=== PATIENT | female | born 1970 | race Caucasian/White ===

== ENCOUNTER → 2016-08-25 | Outpatient (CLI) | payer BC | END | disposition home or self-care (01) | LOC: MMGSC 14:50 | PROVIDERS: ATTEND Family Medicine | DX: R35.8 Other polyuria (principal) | CPT/HCPCS: 87086 ==

== ENCOUNTER → 2016-09-01 | Outpatient (CLI) | payer BC | END | disposition home or self-care (01) | LOC: MMGSC 12:04 | PROVIDERS: ATTEND Family Medicine | DX: N76.0 Acute vaginitis (principal) | CPT/HCPCS: 87070; 87205; 87491; 87591 ==

== ENCOUNTER → 2017-03-22 | Outpatient (CLI) | payer BC ==
[2017-03-22 18:46] LABS: Basophils # (A) 0.1 k/uL (0-0.2); Basophils % (A) 1 %; CHCM 34.6; Eosinophils # (A) 0.2 k/uL (0-0.7); Eosinophils % (A) 2 %; HDW 2.51; HGB 14.3 gm/dL (11.4-16.0); Luc # (Auto) 0.17; Luc % (Auto) 3; Lymphocytes # (A) 2.7 k/uL (1.0-4.8); Lymphocytes % (A) 40 %; MCH 31.6 pg (25.0-35.0); MCHC 34.1 g/dL (31.0-37.0); MCV 92.8 fL (80.0-100.0); Mean Platelet Volume 8.2; Monocytes # (A) 0.4 k/uL (0-1.0); Monocytes % (A) 6 %; Neutrophils # (A) 3.3 k/uL (1.3-7.7); Neutrophils % (A) 49 %; RBC 4.52 m/uL (3.80-5.40); RDW 13.7 % (11.5-15.5); WBC 6.7 k/uL (3.8-10.6); WBC (Perox) 6.26
[2017-03-22 18:55] LABS: ALT 28 U/L (9-52); AST 21 U/L (14-36); Alkaline Phosphatase 48 U/L (38-126); Anion Gap 13 mmol/L; Blood Urea Nitrogen 13 mg/dL (7-17); Calcium 8.9 mg/dL (8.4-10.2); Carbon Dioxide 22 mmol/L (22-30); Chloride 107 mmol/L (98-107); Cholesterol 257 mg/dL (<200); Glucose 90 mg/dL (74-99); HDL Cholesterol 51 mg/dL (40-60); Non-African American GFR(MDRD) 60 (>60 ml/min/1.73 sqM); Potassium 4.2 mmol/L (3.5-5.1); Sodium 142 mmol/L (137-145); Total Bilirubin 1.2 mg/dL (0.2-1.3); Total Protein 7.4 g/dL (6.3-8.2); Triglycerides 193 mg/dL (<150)
== END | disposition home or self-care (01) ==
LOC: MMGSC 09:16
PROVIDERS: ATTEND Family Medicine
DX: Z00.00 Encounter for general adult medical examination without abnormal findings (principal)
CPT/HCPCS: 36415; 80053; 80061; 84439; 84443; 85025

== ENCOUNTER → 2017-04-29 | Outpatient (CLI) | payer BC | LOC: MMGSC 15:31 | PROVIDERS: ATTEND Family Medicine | DX: R35.0 Frequency of micturition (principal) | CPT/HCPCS: 87086 ==

== ENCOUNTER → 2017-08-29 | Outpatient (CLI) | payer BC ==
--- NOTE | 2017-08-31 07:13 | MM ---
Reason for exam: screening (asymptomatic). Last mammogram was performed 1 year and 2 months ago. History: Patient had first child at age 34. Taking hormonal contraceptives for 20 years beginning at age 21. Physical Findings: A clinical breast exam by your physician is recommended on an annual basis and results should be correlated with mammographic findings. MG Screening Mammo w CAD Bilateral CC and MLO view(s) were taken. Prior study comparison: June 28, 2016, bilateral MG screening mammo w CAD. July 16, 2014, bilateral MG screening mammo w CAD. The breast tissue is almost entirely fat. No significant changes when compared with prior studies. ASSESSMENT: Negative, BI-RAD 1 RECOMMENDATION: Routine screening mammogram of both breasts in 1 year.
== END | disposition home or self-care (01) ==
LOC: RADMAMWWP 13:12
PROVIDERS: ATTEND Obstetrics & Gynecology
DX: Z12.31 Encounter for screening mammogram for malignant neoplasm of breast (principal)
CPT/HCPCS: 77067

== ENCOUNTER → 2017-09-22 | Outpatient (CLI) | payer BC ==
--- NOTE | 2017-09-22 13:09 | US ---
EXAMINATION TYPE: US extremity nonvasculr ltd LT DATE OF EXAM: 09/22/2017 COMPARISON: NONE CLINICAL HISTORY: Left Knee pain M25.562, R22.42 Swelling L leg. 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 IMPRESSION: Elongated complex fluid collection extending from the popliteal fossa most commonly rela ting to the Pace's cyst/popliteal fossa cyst. Alternative consideration is for hematoma from prior t rauma, which is considered less likely.
== END | disposition home or self-care (01) ==
LOC: RADUSWWP 12:19
PROVIDERS: ATTEND Family Medicine
DX: M25.562 Pain in left knee (principal); R22.42 Localized swelling, mass and lump, left lower limb

== ENCOUNTER → 2018-08-18 | Outpatient (CLI) | payer BC ==
[2018-08-18 12:47] LABS: Basophils # (A) 0.1 k/uL (0-0.2); Basophils % (A) 1 %; Eosinophils # (A) 0.2 k/uL (0-0.7); Eosinophils % (A) 2 %; HCT 39.3 % (34.0-46.0); HGB 13.6 gm/dL (11.4-16.0); Lymphocytes # (A) 2.3 k/uL (1.0-4.8); Lymphocytes % (A) 23 %; MCH 31.6 pg (25.0-35.0); MCHC 34.6 g/dL (31.0-37.0); MCV 91.5 fL (80.0-100.0); Mean Platelet Volume 7.1; Monocytes # (A) 0.5 k/uL (0-1.0); Monocytes % (A) 5 %; Neutrophils # (A) 6.9 k/uL (1.3-7.7); Neutrophils % (A) 68 %; Platelet Count 269 k/uL (150-450); RBC 4.29 m/uL (3.80-5.40); RDW 13.1 % (11.5-15.5); WBC 10.1 k/uL (3.8-10.6)
== END | disposition home or self-care (01) ==
LOC: LABPAT 11:50
PROVIDERS: ATTEND Obstetrics & Gynecology
DX: Z01.818 Encounter for other preprocedural examination (principal); Z01.812 Encounter for preprocedural laboratory examination; I10 Essential (primary) hypertension; R87.612 Low grade squamous intraepithelial lesion on cytologic smear of cervix (LGSIL)
CPT/HCPCS: 36415; 85025; 93005

== ENCOUNTER 2018-09-05 06:17 | Day surgery (SDC) | payer BC ==
[2018-09-01 14:57] VITALS: BMI 38.6
--- NOTE | 2018-09-04 13:38 | HP ---
HISTORY AND PHYSICAL H and P for surgery tomorrow, September 05. This is a 48-year-old white female who presents for cold knife conization of the cervix for a history of positive high-risk HPV on Pap smear, colposcopy showing low-grade squamous intraepithelial lesion, cannot rule out high-grade changes on an ECC. I discussed with her the difficulty in thoroughly analyzing this aspect of the cervix secondary to its cryptic nature. After thorough discussion, and because she is done with childbearing, we have elected to proceed with cold knife conization of the cervix. She is using oral contraception for control. She has no other complaints or problems. REVIEW OF SYSTEMS: Otherwise negative. She has had abnormal Pap smears in the past, dating back to 1995. PAST MEDICAL HISTORY: Significant for endometriosis, hypercholesterolemia, psoriasis, positive high-risk HPV Digene, and history of chlamydia. PAST SURGICAL HISTORY: section 2004, colposcopies and colposcopically directed biopsies in the past. Diagnostic laparoscopy 2003, voluntary terminations of in the . CURRENT MEDICATIONS: 1. A 20 mcg control pill daily. 2. Celexa daily. 3. Clobetasol topical ointment twice daily p.r.n. 4. Dyazide 37.5/25 mg capsule daily. 5. Flonase as needed. 6. Lipitor daily. 7. Vitamin D daily. ALLERGIES: Allergies include PENICILLIN to which reports a rash. FAMILY HISTORY: Significant for hypertension, psoriasis, and thyroid disease. OBSTETRIC HISTORY: Significant for section 2004, 3 spontaneous miscarriages and 1 termination of . SOCIAL HISTORY: Patient is a former smoker, quit in the . Social alcohol. She is . She works locally. PHYSICAL EXAMINATION: On exam, the patient is 228 pounds, 5 foot 3-1/2 inches, BMI 40, blood pressure 120/80. HEENT exam reveals good dentition, no thyromegaly. Chest is clear to auscultation in all mejias anteriorly and posteriorly. Abdomen is soft and moderately obese. No organosplenomegaly. No tenderness. Active bowel sounds. Breasts are bilaterally symmetric to inspection with no skin dimpling, nipple discharge, or axillary adenopathy. The extremities reveal good range of motion, no edema, good peripheral pulses. The cervix is nulliparous in appearance. Uterus is small, anteverted, anteflexed. Adnexa are negative bilaterally. IMPRESSION: Positive endocervical curettage, cannot rule out high-grade lesion. Patient is electing cold knife conization of the cervix. PLAN: We have discussed options and I believe this is the safest option for the patient given her scenario. We have reviewed the risks of bleeding, infection, perforation or damage to bowel, bladder, ureters, or indeed any pelvic organs. A second opinion has been offered and declined. The patient is no longer interested in childbearing, but understands that a conization could increase her risk for labor and delivery. All questions answered. MMODL / IJN: [id number] /
[~2018-09-05 06:17] MED LIST: DEXAMETHASONE SOD PHOSPHATE 10 MG/ML 1 ML VIAL IV ONE; HYDROmorphone 0.5 MG/0.5 ML SYRINGE IVP PRN; LIDOCAINE 1% 20 ML VIAL (10MG/ML) FOR IV START INTRADERMA PRN; MIDAZOLAM (PF) 2 MG/2 ML VIAL IV PRN; ONDANSETRON 4 MG/2 ML VIAL IVP ONE; SCOPOLAMINE 1.5MG/72HR PATCH TRANSDERM ONE; ceFAZolin IN SWFI 2 GM/20 ML SYRINGE IVP ONE
[2018-09-05] MEDS: LACTATED RINGERS 1,000 ML IV SCH ×2 (07:07→07:24)
[2018-09-05] MEDS ORDERED: fentaNYL (PF) 50 MCG/ML 2 ML AMP ONE (07:26)
[2018-09-05] MEDS ORDERED: LIDOCAINE 1% INJ 10MG/ML (20 ML MDV) ONE (07:26)
[2018-09-05] MEDS ORDERED: PROPOFOL 10 MG/ML 20 ML VIAL IV ONE (07:26)
[2018-09-05] MEDS ORDERED: SUCCINYLCHOLINE CHLORIDE 100 MG/5 ML SYR IV ONE (07:26)
[2018-09-05] MEDS ORDERED: MIDAZOLAM 2 MG/2 ML VIAL ONE (07:26)
[2018-09-05] MEDS ORDERED: KETOROLAC 30 MG/ML 1 ML VIAL ONE (07:26)
[2018-09-05] MEDS ORDERED: VASOPRESSIN 20 UNIT/ML 1 ML VIAL SQ ONE (07:44)
[2018-09-05] MEDS ORDERED: FERRIC SUBSULFATE (MONSELS) JAR TOPICAL ONE (07:50)
--- NOTE | 2018-09-05 07:55 | P.OP ---
Date of Procedure: 09/05/18 Preoperative Diagnosis: Persistently Abnormal Pap smear, positive endocervical curettings. Postoperative Diagnosis: Same Procedure(s) Performed: Cold knife conization, endocervical curettage Anesthesia: ROSEMARY Surgeon: Dafne Arenas Financial Adviser #1: Stated None Estimated Blood Loss (ml): 5 IV fluids (ml): 700 Urine output (ml): 5 Pathology: other (Conization specimen tagged at 12:00, endocervical curettings) Condition: stable Disposition: PACU Operative Findings: Essentially negative cervix to visual examination. Description of Procedure: Patient is brought to the operating suite where a general anesthetic is administered without difficulty. She's placed in the dorsal lithotomy position. Antibiotics are not deemed necessary. Urine hCG is negative. Appropriate timeout is performed to assure proper patient and procedural identification. The cervix, vagina, perineal bodies are all prepped and draped in usual sterile fashion. Weighted speculum was placed into the vagina. Bladder is drained for 5 mL of clear yellow urine. Stay sutures of 0 Vicryl are placed for hemostatic purposes, on the patient's left from 2:00 to 4:00, held laterally. On the patient's right from 8:00 to 10:00, tied and held laterally. The cervix is then injected with dilute Pitressin solution again to aid in hemostasis. A sharp knife was used at 12:00 and the specimen is removed. It is sutured tagged at 12:00. A vigorous endocervical curettage was then performed and sent to pathology under separate cover. Hemostasis is excellent. The base of the cervical stump is then cauterized with electrocautery. Monsel solution is placed. Stay sutures are removed. All sponge needle and enhancement counts are correct at the end of the procedure. Patient is brought back to recovery room in very good condition with stable vital signs including blood pressure 109/75, pulse 71, 95% O2 saturation. Toradol is given prior to leaving the operative suite. Patient will follow-up with me in the office in 2 weeks.
[2018-09-05 08:12] VITALS: TEMP 98.2
[2018-09-05 08:21] VITALS: RESP 16
[2018-09-05] MEDS ORDERED: LACTATED RINGERS 1,000 ML IV ONE (09:11)
[2018-09-05 09:56] VITALS: BP 117/78; PULSE 86
== END 2018-09-05 10:54 | disposition home or self-care (01) ==
LOC: OR 06:17
PROVIDERS: ATTEND Obstetrics & Gynecology
DX: N87.1 Moderate cervical dysplasia (principal); N80.9 Endometriosis, unspecified; I10 Essential (primary) hypertension; E78.00 Pure hypercholesterolemia, unspecified; E78.5 Hyperlipidemia, unspecified; E66.9 Obesity, unspecified; F41.9 Anxiety disorder, unspecified; F43.29 Adjustment disorder with other symptoms; L40.9 Psoriasis, unspecified; Z79.3 Long term (current) use of hormonal contraceptives; Z79.899 Other long term (current) drug therapy; Z88.0 Allergy status to penicillin; Z87.891 Personal history of nicotine dependence; Z68.41 Body mass index [BMI] 40.0-44.9, adult
CPT/HCPCS: 57520; 81025; 88305; 88307; J2250; J1100; J2405; J2001; J3010; J1885; J0330; J2704

== ENCOUNTER → 2018-11-03 | Outpatient (CLI) | payer BC ==
--- NOTE | 2018-11-07 09:03 | MM ---
Reason for exam: screening (asymptomatic). Last mammogram was performed 1 year and 2 months ago. History: Patient had first child at age 34. Taking hormonal contraceptives for 20 years beginning at age 21. Physical Findings: A clinical breast exam by your physician is recommended on an annual basis and results should be correlated with mammographic findings. MG Screening Mammo w CAD Bilateral CC and MLO view(s) were taken. Prior study comparison: August 29, 2017, bilateral MG screening mammo w CAD. June 28, 2016, bilateral MG screening mammo w CAD. There are scattered fibroglandular densities. No significant changes when compared with prior studies. ASSESSMENT: Negative, BI-RAD 1 RECOMMENDATION: Routine screening mammogram of both breasts in 1 year.
== END | disposition home or self-care (01) ==
LOC: RADMAMWWP 12:32
PROVIDERS: ATTEND Obstetrics & Gynecology
DX: Z12.31 Encounter for screening mammogram for malignant neoplasm of breast (principal)
CPT/HCPCS: 77067

== ENCOUNTER → 2020-06-24 | Outpatient (CLI) | payer BC | END | disposition home or self-care (01) | LOC: LABWHC1 12:33 | PROVIDERS: ATTEND Family Medicine | DX: Z03.818 Encounter for observation for suspected exposure to other biological agents ruled out (principal) | CPT/HCPCS: U0003; C9803 ==

== ENCOUNTER → 2020-07-01 | Outpatient (CLI) | payer BC | END | disposition home or self-care (01) | LOC: LABWHC1 11:44 | PROVIDERS: ATTEND Family Medicine | DX: Z20.828 Contact with and (suspected) exposure to other viral communicable diseases (principal) | CPT/HCPCS: U0003; C9803 ==

== ENCOUNTER → 2020-07-16 | Outpatient (CLI) | payer BC ==
--- NOTE | 2020-07-16 14:04 | MM ---
Reason for exam: screening (asymptomatic). Last mammogram was performed 1 year and 8 months ago. History: Patient had first child at age 34. Taking hormonal contraceptives for 20 years beginning at age 21. Physical Findings: A clinical breast exam by your physician is recommended on an annual basis and results should be correlated with mammographic findings. MG Screening Mammo w CAD Bilateral CC and MLO view(s) were taken. Prior study comparison: November 03, 2018, bilateral MG screening mammo w CAD. August 29, 2017, bilateral MG screening mammo w CAD. There are scattered fibroglandular densities. There is no discrete abnormality. ASSESSMENT: Negative, BI-RAD 1 RECOMMENDATION: Routine screening mammogram of both breasts in 1 year.
== END | disposition home or self-care (01) ==
LOC: RADMAMWWP 10:45
PROVIDERS: ATTEND Obstetrics & Gynecology
DX: Z12.31 Encounter for screening mammogram for malignant neoplasm of breast (principal)
CPT/HCPCS: 77067

== ENCOUNTER → 2021-09-10 | Outpatient (CLI) | payer OTHER ==
--- NOTE | 2021-09-10 13:02 | CONS ---
CONSULTATION DATE OF SERVICE: 09/10/2021 This 51-year-old lady has been evaluated in Sleep Center for possible obstructive sleep apnea-hypopnea syndrome. HISTORY OF PRESENT ILLNESS/SLEEP-WAKE EVALUATION: Patient's usual sleep schedule is from 11:30 p.m. until 7:45 a.m. on weekdays and from 11 p.m. until 8 a.m. on weekends. No problems with falling asleep. No TV in bedroom. She usually sleeps on the side position. According to her family, she snores. She grinds her teeth during sleep. She wakes up from sleep 2 times with nocturia. No history of hypnagogic hallucinations, sleep paralysis or cataplexy. During the day, she is ready for a nap at any time. Sometimes she takes a nap at 2 or 3 p.m. Roll Sleepiness Scale is borderline at 9. In the morning the patient wakes up tired, has episodes of anxiety and depression. PAST MEDICAL HISTORY: Positive for psoriasis, recently under evaluation for possible lupus, hyperlipidemia, sinusitis, seasonal allergies, acid reflux, anxiety. Perimenopausal; irregular menstrual periods recently. PAST SURGICAL HISTORY: Tonsillectomy, . MEDICATIONS: 1. Wellbutrin 300 mg once a day. 2. Lipitor 20 mg once a day. 3. Protonix 10 mg once a day. 4. Lexapro 20 mg once a day. 5. Xanax 0.5 mg as needed. 6. Clobetasol as needed. SOCIAL HISTORY: Positive for smoking in the past; quit about 20 years ago. Alcohol consumption occasional. FAMILY HISTORY: Positive for sleep apnea, thyroid problems, hypertension, arthritis. REVIEW OF SYSTEMS: Awakenings from sleep, snoring, tiredness and sleepiness during the day. No fevers. No double vision. No recent chest pain. No shortness of breath. No abdominal pain. No bleeding episodes. No blood in the urine. No seizure episodes. PHYSICAL EXAMINATION: GENERAL: Pleasant lady without distress. VITAL SIGNS: BP 131/78, HR 78, RR 16, height 5 feet 4 inches, weight 227.0, body mass index 38.9, temperature 97.3, oxygen saturation at room air 98%. HEENT: PERRLA, EOMI, evaluation of oropharynx showed tongue protrudes midline. Low position of soft palate; Mallampati III. NECK: Supple, no JVD. Thyroid is not palpable. Neck is wide; 16-1/2 inches in circumference. LUNGS: Clear to percussion and to auscultation. Good air exchange. No wheezing or rhonchi. HEART: S1, S2 regular. No murmurs, gallops, or rubs. ABDOMEN: Soft and nontender. Bowel sounds are present. No organomegaly appreciated. EXTREMITIES: No clubbing or cyanosis. MEDICAL INSURANCE VERIFIER: Awake, alert, and oriented X3. Cranial nerves 2 to 7 intact. There is no fasciculation or atrophy. noted. No focal deficits observed. IMPRESSION: 1. Snoring, multiple awakenings from sleep with nocturia, low position of soft palate, Mallampati III, wide neck, 16-1/2 inches in circumference, patient feels sleepiness during the day; obstructive sleep apnea-hypopnea syndrome. 2. Perimenopausal. 3. History of anxiety and episodes of depression. 4. Hyperlipidemia. 5. History of psoriasis. 6. Recently diagnosed with possible lupus. 7. Seasonal allergies. 8. Acid reflux. 9. Status post tonsillectomy. 10.Status post . PLAN: 1. Polysomnography for evaluation of patient's breathing during sleep. 2. CPAP/BiPAP titration if sleep study confirms obstructive sleep apnea-hypopnea syndrome. 3. Preferable position during sleep on the side. 4. No driving if patient feels any sleepiness. 5. I will see patient for follow up visit to explain results of testing and following plan. Thank you very much for referring this patient for consultation. Sincerely, Davion Simmons MD, PhD, FAASM Diplomat of [place] [employer] Sleep Medicine Board of [place] [employer] Convention Planner of [facility] [place] MMODL / IJN: [id number] /
== END | disposition home or self-care (01) ==
LOC: SLEEP 11:18
PROVIDERS: ATTEND Internal Medicine
DX: G47.33 Obstructive sleep apnea (adult) (pediatric) (principal); E78.5 Hyperlipidemia, unspecified; Z87.2 Personal history of diseases of the skin and subcutaneous tissue; J30.2 Other seasonal allergic rhinitis; K21.9 Gastro-esophageal reflux disease without esophagitis; Z90.89 Acquired absence of other organs; Z98.890 Other specified postprocedural states; Z86.59 Personal history of other mental and behavioral disorders; Z78.0 Asymptomatic menopausal state
CPT/HCPCS: 99211

== ENCOUNTER → 2022-01-21 | Outpatient (CLI) | payer OTHER ==
--- NOTE | 2022-01-22 15:20 | MM ---
Reason for Exam: Screening (asymptomatic). Last mammogram was performed 1 year(s) and 7 month(s) ago. Patient History: Menarche at age 14. First Full-Term at age 34. Late child-bearing (after 30). Hormonal Contraceptives, starting at age 21 for 20 years. Risk Values: Kasie 5 year model risk: 1.3%. NCI Lifetime model risk: 12.1%. Prior Study Comparison: 08/29/2017 Bilateral Screening Mammogram, [facility]. 11/03/2018 Bilateral Screening Mammogram, [facility]. 07/16/2020 Bilateral Screening Mammogram, [facility]. Tissue Density: There are scattered fibroglandular densities. Findings: Analyzed By CAD. There is no suspicious group of microcalcifications or new suspicious mass in either breast. Overall Assessment: Negative, BI-RAD 1 Management: Screening Mammogram of both breasts in 1 year. A clinical breast exam by your physician is recommended on an annual basis and results should be correlated with mammographic findings. Electronically signed and approved by: Sebas Rogers D.O. Radiologis
== END | disposition home or self-care (01) ==
LOC: RADMAMWWP 13:24
PROVIDERS: ATTEND Family Medicine
DX: Z12.31 Encounter for screening mammogram for malignant neoplasm of breast (principal)
CPT/HCPCS: 77067

== ENCOUNTER → 2022-02-18 | Outpatient (CLI) | payer OTHER ==
--- NOTE | 2022-02-18 14:01 | P.PN ---
Subjective DATE: 02/18/2022 FOLLOW UP VISIT. Patient with obstructive sleep apnea hypopnea syndrome return to sleep center for follow-up visit. Recently patient had sleep study which documented obstructive sleep apnea hypopnea syndrome. Patient was initiated on PAP therapy and today is first visit after treatment was started. Patient was able to use PAP equipment most of the nights. The patient does not have significant problems with the PAP pressure and humidification. [place] sleepiness scale is 3. I checked information from PAP unit. PAP unit pressure 5-10 average 9.9 cm H2O. Usage is 93% and 70 % for more then 4 hours, average 4 hours 36 minutes per night. Leak is 7.5 l/m, which is in acceptable range. Apnea Hypopnea Index is 5.2, which is slightly above normal . Patient still feels some tiredness well using CPAP. MEDICATIONS:1. Wellbutrin 300 mg once a day 2. Lipitor 20 mg once a day 3. Protonix 10 mg once a day 4. Lexapro 20 mg once a day 5. Xanax 0.5 mg as needed During physical exam: GENERAL: A pleasant patient without any distress. VITAL SIGNS: BP 127/84, HR 69, RR 12, weight t231.0, temperature 97.4, oxygen saturation at room air 99%. HEENT: PERRLA, EOMI.low position of soft palate, Mallapati 3. NECK: Supple. No JVD. LUNGS: Clear to percussion and to auscultation. Good air exchange. No wheezing or rhonchi. HEART: S1, S2 regular. ABDOMEN: Soft and nontender. Obese EXTREMITIES: No clubbing or cyanosis. AIRPORT SALES AGENT: Awake, alert, and oriented x3. No focal deficit. Impressions: 1. Obstructive sleep apnea-hypopnea syndrome. Patient demonstrated good compliance with treatment. Patient still feels some tiredness after using CPAP 2. History of anxiety and depression. 3. Hyperlipidemia. 4. Seasonal ALLERGY. 5. History of possible lupus erythematosus. 6. Acid reflux. 7. History of psoriasis. 8. Status post tonsillectomy. 9. Status post . Plan: 1. Continue using PAP equipment every night for the whole night. I changed her regimen over the pressure up to the level from 5-13 cm of water. 2. Prescription for different style of nasal pillow mask Airfeet. P-10 medium size. 3. PAP unit should stay lower then position of the head. 4. Advised patient to remove all remaining water from humidifier canister daily and make it dry after each usage. Refill canister with fresh distilled water before each usage. 5. Sleep hygiene with regular time in bed for at least 8 hours. 6. Precautions related to driving. No driving if feel any sleepiness. 7. I will maintain prescription for PAP supplies including mask, tube, filters. 8. Follow up visit in 2 months or earlier if patient has any problems. 9. Watching weight. Thank you very much for allowing me to participate in the management of your patient. Davion Simmons MD, PhD, FAASM. Diplomat of [place] [employer], Sleep Medicine Board by [place] [employer] Certified Neurodiagnostic Technologist of [facility] [place]
== END ==
LOC: SLEEP 13:07
PROVIDERS: ATTEND Internal Medicine
DX: G47.33 Obstructive sleep apnea (adult) (pediatric) (principal); Z99.89 Dependence on other enabling machines and devices; F41.9 Anxiety disorder, unspecified; F32.A Depression, unspecified; E78.5 Hyperlipidemia, unspecified; J30.2 Other seasonal allergic rhinitis; K21.9 Gastro-esophageal reflux disease without esophagitis; Z90.09 Acquired absence of other part of head and neck; Z87.59 Personal history of other complications of pregnancy, childbirth and the puerperium; Z87.2 Personal history of diseases of the skin and subcutaneous tissue; Z79.899 Other long term (current) drug therapy; Z88.0 Allergy status to penicillin; Z87.891 Personal history of nicotine dependence

== ENCOUNTER → 2023-06-29 | Outpatient (CLI) | payer BC ==
--- NOTE | 2023-06-29 09:24 | MM ---
Reason for Exam: Screening (asymptomatic). Last mammogram was performed 1 year(s) and 5 month(s) ago. Patient History: Menarche at age 14. First Full-Term at age 34. Late child-bearing (after 30). Postmenopausal. Patient has history of breast feeding. Hormonal Contraceptives, starting at age 21 for 20 years. Risk Values: Kasie 5 year model risk: 1.4%. NCI Lifetime model risk: 12.0%. Prior Study Comparison: 11/03/2018 Bilateral Screening Mammogram, [facility]. 07/16/2020 Bilateral Screening Mammogram, [facility]. 01/21/2022 Bilateral MG screening mammo w CAD, [facility]. Tissue Density: There are scattered fibroglandular densities. Findings: Analyzed By CAD. There is no suspicious group of microcalcifications or new suspicious mass in either breast. Overall Assessment: Negative, BI-RAD 1 Management: Screening Mammogram of both breasts in 1 year. A clinical breast exam by your physician is recommended on an annual basis and results should be correlated with mammographic findings. Note on Kasie scores and lifetime risk: 1. A Kasie score greater than 3% is considered moderate risk. If this is the case, consider specialist referral to assess eligibility for a risk reducing agent. If overall lifetime risk for the development of breast cancer is 20% or higher, the patient may qualify for future screening with alternating mammogram and breast MRI. Electronically signed and approved by: Lio Gomez D.O.
== END | disposition home or self-care (01) ==
LOC: RADMAMWWP 08:54
PROVIDERS: ATTEND Obstetrics & Gynecology
DX: Z12.31 Encounter for screening mammogram for malignant neoplasm of breast (principal); Z78.0 Asymptomatic menopausal state
CPT/HCPCS: 77067

== ENCOUNTER → 2024-07-11 | Outpatient (CLI) | payer BC ==
--- NOTE | 2024-07-12 10:54 | MM ---
Reason for Exam: Screening (asymptomatic). Last screening mammogram was performed 12 month(s) ago. Patient History: Menarche at age 14. First Full-Term at age 34. Late child-bearing (after 30). Postmenopausal. Patient has history of breast feeding. Hormonal Contraceptives, starting at age 21 for 20 years. Risk Values: Kasie 5 year model risk: 1.5%. NCI Lifetime model risk: 11.6%. Prior Study Comparison: 07/16/2020 Bilateral Screening Mammogram, [facility]. 01/21/2022 Bilateral MG screening mammo w CAD, [facility]. 06/29/2023 Bilateral MG screening mammo w CAD, [facility]. Tissue Density: The breasts are almost entirely fatty. Findings: Analyzed By CAD. There is no suspicious group of microcalcifications or new suspicious mass in either breast. Overall Assessment: Negative, BI-RAD 1 Management: Screening Mammogram of both breasts in 1 year. . Patient should continue monthly self-breast exams. A clinical breast exam by your physician is recommended on an annual basis. This exam should not preclude additional follow-up of suspicious palpable abnormalities. Note on Kasie scores and lifetime risk: 1. A Kasie score greater than 3% is considered moderate risk. If this is the case, consider specialist referral to assess eligibility for a risk reducing agent. 2. If overall lifetime risk for the development of breast cancer is 20% or higher, the patient may qualify for future screening with alternating mammogram and breast MRI. [facility], , 07/12/2024 10:52 AM. Electronically signed and approved by: Rashi Small M.D. Radiologis
== END | disposition home or self-care (01) ==
LOC: RADMAMWWP 12:43
PROVIDERS: ATTEND Obstetrics & Gynecology
DX: Z12.31 Encounter for screening mammogram for malignant neoplasm of breast (principal); Z78.0 Asymptomatic menopausal state; R92.313 Mammographic fatty tissue density, bilateral breasts
CPT/HCPCS: 77067